=== PATIENT | male | born 1995 | race Two or more races ===

== ENCOUNTER 2016-12-07 20:00 | Emergency (ER) | payer OTHER ==
[2016-12-07 20:12] VITALS: RESP 16
[2016-12-07] MEDS ORDERED: NS 1,000 ML IV ONE (20:20)
[2016-12-07] MEDS ORDERED: ONDANSETRON 4 MG/2 ML VIAL IVP ONE (20:20)
--- NOTE | 2016-12-07 20:26 | EDPHY ---
H & P Time Seen by Provider: 12/07/16 20:18 HPI/ROS: CHIEF COMPLAINT: Vomiting, myalgias HISTORY OF PRESENT ILLNESS: The patient is a 21 year old male presenting with nausea and vomiting that he woke up with at 4am. The patient has not been able to keep down any liquids or solids today. He has associated abdominal pain. The pain occurs prior to vomiting and then is relieved after he vomits. He also complains of diffuse moderate myalgias and headache. He feels febrile and fatigued. He denies cough, sore throat, or chest pain. No abdominal pain now. REVIEW OF SYSTEMS: A comprehensive 10 point review of systems is otherwise negative aside from elements mentioned in the history of present illness. Past Medical/Surgical History: Denies. Social History: [employer] student. Smoking Status: Never smoked Physical Exam: General Appearance: Alert, nontoxic-appearing Eyes: Pupils equal and round, no conjunctival injection ENT, Mouth: Mucous membranes moist Neck: Normal inspection Respiratory: Lungs are clear to auscultation Cardiovascular: Regular rate and rhythm Gastrointestinal: Abdomen is soft and non-tender Neurological: A&O, nonfocal, normal gait Skin: Warm and dry, no rash Extremities: Normal inspection, no tenderness Psychiatric: Mood and affect normal Constitutional: Initial Vital Signs Temperature (C) 36.9 C 12/07/16 20:10 Heart Rate 70 12/07/16 20:10 Respiratory Rate 16 12/07/16 20:10 Blood Pressure 134/86 H 12/07/16 20:10 O2 Sat (%) 96 12/07/16 20:10 O2 Delivery Mode Room Air Allergies/Adverse Reactions: No Known Allergies Allergy (Unverified 12/07/16 20:10) Home Medications: Medication Instructions Recorded Adderall 20 mg (*) 12/07/16 Ondansetron Odt [Zofran Odt 4 mg 4 mg PO Q4 PRN #6 tab 12/07/16 (*)] Oseltamivir Phosphate [Tamiflu 75 75 mg PO BID #10 cap 12/07/16 mg (RX)] Medical Decision Making ED Course/Re-evaluation: Patient presents with influenza like symptoms during influenza season. IV normal saline 1 L, Zofran 4 mg IV and Toradol 30 mg IV given. Will treat him for influenza with Tamiflu. 9:00 p.m.-feels much better after IV medications and IV fluids. Able to tolerate oral fluids well. Differential Diagnosis: Differential diagnosis includes but is not limited to pneumonia, otitis media, peritonsillar abscess, retropharyngeal abscess, meningitis. - Data Points Medications Given: Discontinued Medications Sodium Chloride (Ns) 1,000 mls @ 0 mls/hr IV ONCE ONE PRN Reason: Wide Open Stop: 12/07/16 20:21 Last Admin: 12/07/16 20:36 Dose: 1,000 mls Ketorolac Tromethamine (Toradol) 30 mg IVP EDNOW ONE Stop: 12/07/16 20:29 Last Admin: 12/07/16 20:46 Dose: 30 mg Ondansetron HCl (Zofran) 4 mg IVP EDNOW ONE Stop: 12/07/16 20:21 Last Admin: 12/07/16 20:47 Dose: 4 mg Ondansetron HCl (Zofran Odt 4 Mg Prepack#2) 1 btl TAKEHOME EDNOW ONE Stop: 12/07/16 20:29 Last Admin: 12/07/16 21:03 Dose: 1 btl Departure - Departure Disposition: Home, Routine, Self-Care Clinical Impression: Influenza Condition: Good Instructions: Influenza (ED) Additional Instructions: Drink plenty of liquids. Take 600mg Ibuprofen every 6-8 hours as needed for body aches and headache. Start Tamiflu and use as directed. Followup with your primary care physician if your symptoms do not improve. Referrals: RIK[facility] AMATO [Other] - As per Instructions Prescriptions: Ondansetron Odt [Zofran Odt 4 mg (*)] 4 mg PO Q4 PRN #6 tab PRN Reason: Nausea Oseltamivir Phosphate [Tamiflu 75 mg (RX)] 75 mg PO BID #10 cap Report Scribed for: Cande Fonseca Report Scribed by: Sayda Frazier Date of Report: 12/07/16 Time of Report: 20:26 Physician Review and Approval Statement: 12/07/16 20:26 Portions of this note were transcribed by a medical insurance coder. I personally performed the history, physical exam, and medical decision-making; and confirmed the accuracy of the information in the transcribed note.
[2016-12-07] MEDS ORDERED: KETOROLAC 30 MG/1 ML SDV IVP ONE (20:28)
[2016-12-07] MEDS ORDERED: ONDANSETRON 4MG PREPACK#2 BTL TAKEHOME ONE (20:28)
[2016-12-07 21:34] VITALS: BP 144/66; PULSE 79; TEMP 97.5; O2SAT 95
== END 2016-12-07 21:35 | disposition home or self-care (01) ==
DX: J11.1 Influenza due to unidentified influenza virus with other respiratory manifestations (principal)
CPT/HCPCS: 96374; J1885; J2405